=== PATIENT | female | born 1975 ===

== ENCOUNTER 2024-01-20 20:38 | Outpatient (CLI) | payer SELFPAY | END 2024-01-20 20:39 | disposition EMS.NT | LOC: EMS 20:38 | DX: S50.812A Abrasion of left forearm, initial encounter (principal); S20.411A Abrasion of right back wall of thorax, initial encounter; Y04.2XXA Assault by strike against or bumped into by another person, initial encounter; Y92.199 Unspecified place in other specified residential institution as the place of occurrence of the external cause ==